=== PATIENT | male | born 1965 | race Caucasian/White ===

== ENCOUNTER 2018-01-20 10:59 | Emergency (ER) | payer OTHER ==
[2018-01-20 11:26] VITALS: BP 141/85; PULSE 60; RESP 16; TEMP 98.6; O2SAT 97
[2018-01-20 11:43] VITALS: BP 139/90; PULSE 62; RESP 18; O2SAT 96
[2018-01-20] MEDS ORDERED: METO1TAB9 PO (11:49)
--- NOTE | 2018-01-20 12:09 | PD ---
HPI Chief Complaint: Edema Time Seen by Provider: 11:57 Travel History International Travel<30 days: No Contact w/Intl Traveler<30days: No Traveled to known affect area: No History of Present Illness HPI 52-year-old male with a history of hypertension, diabetes mellitus type 2, hyperlipidemia presents emergency department with a DVT to the right lower extremity. Patient states that he was sent over by his primary care physician, Dr. Acosta who wanted recommendations regarding his DVT. Patient denies nausea, vomiting, diarrhea, chest pain, shortness of breath, abdominal pain, back pain. Patient states that he had a superficial thrombosis in his left elbow previously which resolved on its own. Patient has never taken anticoagulants or blood thinners previously. Patient does not take aspirin daily. Says that he has had right lower extremity pain for approximately week and a half and the leg edematous and erythematous over the last couple of days. Patient denies recent surgeries, fractures. States he traveled to [place] which is a [address] over the last week however, states that his pain and swelling started before then. Denies any history of heart problems. PFSH Past Medical History Diabetes: Yes Patient Takes Glucophage: No Hypertension: Yes Triglycerides - High: Yes Social History Alcohol Use: Yes (on occasion) Tobacco Use: No Substance Use: No Allergies-Medications (Allergen,Severity, Reaction): Coded Allergies: No Known Allergies (Unverified , 01/20/18) Reported Meds & Prescriptions Reported Meds & Active Scripts Active Xarelto (Rivaroxaban) 15 Mg Tab 15 Mg PO Q12HR 21 Days Reported Contrave ER 12 HR (Naltrexone HCl-Bupropion ER 12 HR) 8-90 Mg Tab 1 Tab PO DAILY Zocor (Simvastatin) 20 Mg Tab 20 Mg PO DAILY Synjardy (Empagliflozin-Metformin) 12.5 -1,000 Mg Tab 1 Tab PO BIDPC Metoprolol Succinate ER 24 HR (Metoprolol Succinate) 50 Mg Tab 50 Mg PO DAILY Review of Systems Except as stated in HPI: all other systems reviewed are Neg Physical Exam Narrative GENERAL: WD, WN in NAD SKIN: Focused skin assessment warm/dry. HEAD: Atraumatic. Normocephalic. EYES: Pupils equal and round. No scleral icterus. No injection or drainage. ENT: No nasal bleeding or discharge. Mucous membranes pink and moist. NECK: Trachea midline. No JVD. CARDIOVASCULAR: Regular rate and rhythm. No murmur appreciated. RESPIRATORY: No accessory muscle use. Clear to auscultation. Breath sounds equal bilaterally. GASTROINTESTINAL: Abdomen soft, non-tender, nondistended. MUSCULOSKELETAL: No obvious deformities. No clubbing. No cyanosis. Right lower extremity mildly erythematous and edematous. Homans sign positive. Left lower extremity without edema or erythema. Homans sign negative. NEUROLOGICAL: Awake and alert. No obvious cranial nerve deficits. Motor grossly within normal limits. Normal speech. PSYCHIATRIC: Appropriate mood and affect; insight and judgment normal. Data Data Last Documented VS Vital Signs Date Time Temp Pulse Resp B/P (MAP) Pulse Ox O2 Delivery O2 Flow Rate FiO2 01/20/18 11:43 62 18 139/90 (106) 96 Room Air 01/20/18 11:26 98.6 Orders Orders Electrocardiogram (01/20/18 12:09) Complete Blood Count With Diff (01/20/18 12:09) Comprehensive Metabolic Panel (01/20/18 12:09) Prothrombin Time / Inr (Pt) (01/20/18 12:09) Act Partial Throm Time (Ptt) (01/20/18 12:09) Thyroid Stimulating Hormone (01/20/18 12:09) Ed Discharge Order (01/20/18 13:17) Rivaroxaban (Xarelto) (01/20/18 13:45) Labs Laboratory Tests Test 01/20/18 12:21 White Blood Count 8.4 TH/MM3 Red Blood Count 5.16 MIL/MM3 Hemoglobin 16.1 GM/DL Hematocrit 46.5 % Mean Corpuscular Volume 90.1 FL Mean Corpuscular Hemoglobin 31.2 PG Mean Corpuscular Hemoglobin Concent 34.6 % Red Cell Distribution Width 13.3 % Platelet Count 239 TH/MM3 Mean Platelet Volume 9.3 FL Neutrophils (%) (Auto) 71.9 % Lymphocytes (%) (Auto) 14.1 % Monocytes (%) (Auto) 11.7 % Eosinophils (%) (Auto) 1.3 % Basophils (%) (Auto) 1.0 % Neutrophils # (Auto) 6.1 TH/MM3 Lymphocytes # (Auto) 1.2 TH/MM3 Monocytes # (Auto) 1.0 TH/MM3 Eosinophils # (Auto) 0.1 TH/MM3 Basophils # (Auto) 0.1 TH/MM3 CBC Comment DIFF FINAL Differential Comment Prothrombin Time 10.7 SEC Prothromb Time International Ratio 1.1 RATIO Activated Partial Thromboplast Time 23.6 SEC Blood Urea Nitrogen 23 MG/DL Creatinine 1.18 MG/DL Random Glucose 177 MG/DL Total Protein 7.4 GM/DL Albumin 3.8 GM/DL Calcium Level 9.2 MG/DL Alkaline Phosphatase 29 U/L Aspartate Amino Transf (AST/SGOT) 15 U/L Alanine Aminotransferase (ALT/SGPT) 26 U/L Total Bilirubin 0.5 MG/DL Sodium Level 137 MEQ/L Potassium Level 3.5 MEQ/L Chloride Level 100 MEQ/L Carbon Dioxide Level 24.8 MEQ/L Anion Gap 12 MEQ/L Estimat Glomerular Filtration Rate 65 ML/MIN Thyroid Stimulating Hormone 3rd Gen 0.964 uIU/ML MDM Medical Decision Making Medical Screen Exam Complete: Yes Emergency Medical Condition: Yes Differential Diagnosis RLE DVT, cellulitis, erysipelas Narrative Course 52-year-old male with a history of hypertension, diabetes mellitus type 2, hyperlipidemia presents emergency department with a DVT to the right lower extremity. Patient states that he was sent over by his primary care physician, Dr. Acosta who wanted recommendations regarding his DVT. Patient denies nausea, vomiting, diarrhea, chest pain, shortness of breath, abdominal pain, back pain. Patient states that he had a superficial thrombosis in his left elbow previously which resolved on its own. Patient has never taken anticoagulants or blood thinners previously. Patient does not take aspirin daily. Says that he has had right lower extremity pain for approximately week and a half and the leg edematous and erythematous over the last couple of days. Patient denies recent surgeries, fractures. States he traveled to [place] which is [place] [address] over the last week however, states that his pain and swelling started before then. Denies any history of heart problems. Vital signs stable. This exam findings consistent with a right lower extremity DVT confirmed with ultrasound. Patient brought in the results. Laboratory Tests Test 01/20/18 12:21 White Blood Count 8.4 TH/MM3 Red Blood Count 5.16 MIL/MM3 Hemoglobin 16.1 GM/DL Hematocrit 46.5 % Mean Corpuscular Volume 90.1 FL Mean Corpuscular Hemoglobin 31.2 PG Mean Corpuscular Hemoglobin Concent 34.6 % Red Cell Distribution Width 13.3 % Platelet Count 239 TH/MM3 Mean Platelet Volume 9.3 FL Neutrophils (%) (Auto) 71.9 % Lymphocytes (%) (Auto) 14.1 % Monocytes (%) (Auto) 11.7 % Eosinophils (%) (Auto) 1.3 % Basophils (%) (Auto) 1.0 % Neutrophils # (Auto) 6.1 TH/MM3 Lymphocytes # (Auto) 1.2 TH/MM3 Monocytes # (Auto) 1.0 TH/MM3 Eosinophils # (Auto) 0.1 TH/MM3 Basophils # (Auto) 0.1 TH/MM3 CBC Comment DIFF FINAL Differential Comment Prothrombin Time 10.7 SEC Prothromb Time International Ratio 1.1 RATIO Activated Partial Thromboplast Time 23.6 SEC Blood Urea Nitrogen 23 MG/DL Creatinine 1.18 MG/DL Random Glucose 177 MG/DL Total Protein 7.4 GM/DL Albumin 3.8 GM/DL Calcium Level 9.2 MG/DL Alkaline Phosphatase 29 U/L Aspartate Amino Transf (AST/SGOT) 15 U/L Alanine Aminotransferase (ALT/SGPT) 26 U/L Total Bilirubin 0.5 MG/DL Sodium Level 137 MEQ/L Potassium Level 3.5 MEQ/L Chloride Level 100 MEQ/L Carbon Dioxide Level 24.8 MEQ/L Anion Gap 12 MEQ/L Estimat Glomerular Filtration Rate 65 ML/MIN Thyroid Stimulating Hormone 3rd Gen 0.964 uIU/ML Discussed this case with Dr. Vicente recommended outpatient therapy. Patient and understand the importance of compliance with Xarelto. I explained the risk versus benefit of bleeding with this medication. Advised that if he did not take his medication that he could have more clots that could affect his heart and brain, resulting in . Advised that he follow-up with his primary care physician as soon as possible and that he would need a second prescription after the first 21 days. I explained that if he was unable to afford this medication after period of time that alternative anticoagulants would be necessary. Also recommended he follow-up with hematology/oncology to determine the cause of his DVT. Mild travel may be the cause of his DVT, I explained it may be a good idea to evaluate for this. The first dose of Xarelto 15mg administered today. EGFR 65. Patient and understood all the information discussed today and states they will comply. I recommend compression stockings and moving about frequently when on long trips. It appears that patient and do go on frequent medications that require hours 2 days of travel. Diagnosis Primary Impression: DVT (deep venous thrombosis) Qualified Codes: I82.4Y1 - Acute embolism and thrombosis of unspecified deep veins of right proximal lower extremity Referrals: Primary Care Physician Additional Instructions: Follow-up with primary care physician prior to departing to your trip. Take all medication as prescribed to prevent complications as a result of your blood clot. If you develop shortness of breath, chest pain return to the emergency department immediately. Follow-up with a grants officer/oncologist to evaluate further regarding your blood clot. After these first 21 days of medication, you will require Xarelto 20 mg daily for at least 3-6 months and depending on what the grants officer and your primary care physician decide. This is very important as if you do not adhere to instructions this may cause . Scripts Rivaroxaban (Xarelto) 15 Mg Tab 15 MG PO Q12HR for Blood Clot Prevention for 21 Days, #42 TAB 0 Refills Prov: Fany Stinson 01/20/18 Disposition: 01 DISCHARGE HOME Condition: Stable Fany Stinson Jan 20, 2018 12:09
[2018-01-20 12:36] LABS: AUTOMATED NEUTROPHIL # 6.1 TH/MM3 (1.8-7.7); BASOPHIL # 0.1 TH/MM3 (0-0.2); EOSINOPHIL # 0.1 TH/MM3 (0-0.4); EOSINOPHIL % 1.3 % (0.0-4.0); HEMATOCRIT 46.5 % (39.0-51.0); HEMOGLOBIN 16.1 GM/DL (13.0-17.0); LYMPH % 14.1 % (9.0-44.0); LYMPHOCYTE # 1.2 TH/MM3 (1.0-4.8); MEAN CELL VOLUME 90.1 FL (80.0-100.0); MEAN CORPUSCULAR HEMOGLOBIN 31.2 PG (27.0-34.0); MEAN CORPUSCULAR HGB CONC 34.6 % (32.0-36.0); MEAN PLATELET VOLUME 9.3 FL (7.0-11.0); MONO % 11.7 % (0.0-8.0); NEUT % 71.9 % (16.0-70.0); PLATELET COUNT 239 TH/MM3 (150-450); RED BLOOD COUNT 5.16 MIL/MM3 (4.50-5.90); RED CELL DISTRIBUTION WIDTH 13.3 % (11.6-17.2); WHITE BLOOD COUNT 8.4 TH/MM3 (4.0-11.0)
[2018-01-20 12:47] LABS: INTERNATIONAL NORMALIZED RATIO 1.1 RATIO; PROTHROMBIN TIME - PATIENT 10.7 SEC (9.8-11.6)
[2018-01-20 12:52] LABS: ALBUMIN 3.8 GM/DL (3.4-5.0); ALT (GPT) 26 U/L (12-78); AST (GOT) 15 U/L (15-37); BICARBONATE 24.8 MEQ/L (21.0-32.0); BLOOD UREA NITROGEN 23 MG/DL (7-18); CALCIUM 9.2 MG/DL (8.5-10.1); CHLORIDE 100 MEQ/L (98-107); CREATININE 1.18 MG/DL (0.60-1.30); GLOMERULAR FILTRATION RATE 65 ML/MIN (>89); GLUCOSE,RANDOM 177 MG/DL (74-106); SODIUM (NA) 137 MEQ/L (136-145)
[2018-01-20] MEDS ORDERED: NALT1TAB3 PO (12:58)
[2018-01-20] MEDS ORDERED: EMPA1TAB13 PO (12:58)
[2018-01-20] MEDS ORDERED: ZOCO20TA PO (12:58)
[2018-01-20 13:01] LABS: ALKALINE PHOSPHATASE 29 U/L (45-117); TOTAL BILIRUBIN ADULT 0.5 MG/DL (0.2-1.0); TOTAL PROTEIN 7.4 GM/DL (6.4-8.2)
[2018-01-20] MEDS ORDERED: XARE15TA PO (13:16)
[2018-01-20] MEDS ORDERED: RIVAROXABAN 15 MG TAB PO ONE (13:45)
--- NOTE | 2018-01-21 11:26 | EKG ---
Date Performed: 01/20/2018 Time Performed: 12:21:50 PTAGE: 52 years EKG: Sinus rhythm NORMAL ECG NO PREVIOUS TRACING DOCTOR: Pilo De La Garza Interpretating Date/Time 01/21/2018 11:23:53
== END 2018-01-20 13:46 | disposition home or self-care (01) ==
LOC: NEPC 10:59
DX: I82.4Y1 Acute embolism and thrombosis of unspecified deep veins of right proximal lower extremity (principal); I10 Essential (primary) hypertension; E11.9 Type 2 diabetes mellitus without complications; E78.5 Hyperlipidemia, unspecified; Z86.718 Personal history of other venous thrombosis and embolism
CPT/HCPCS: 80053; 84443; 85025; 85610; 85730; 93005; 99284